=== PATIENT | female | born 1955 | race Caucasian/White ===

== ENCOUNTER 2017-04-12 23:08 | Emergency (ER) | payer BC ==
[2017-04-13] MEDS ORDERED: Lidocaine 2% EPI 1:200000 MPF* 20 ML VIAL ONE (01:26)
[2017-04-13] MEDS ORDERED: Lidocaine 2% EPI 1:200000 MPF* 10 ML VIAL INJ ONE (01:26)
[2017-04-13] MEDS ORDERED: Tetan/Diph/Pertus SYR(Tdap)* 0.5 ML SYR(BOOSTRIX) use SYR IM ONE (01:39)
[2017-04-13 01:58] VITALS: BP 106/54
--- NOTE | 2017-04-13 03:08 | ED ---
Tamar Wheeler Gabriel, scribed for Bin Stout on 04/13/17 at 0128 . Adult Trauma - HPI Summary HPI Summary: This patient is a 62 year old F presenting to [facility] accompanied by her s /p fall. The patient rates the pain 2/10 in severity. Patient reports LOC. Patient denies n/v and visual changes. Patient has some alcoholic drinks and tripped causing her to fall, hitting her head on concrete. - History of Current Complaint Chief Complaint: EDHeadInjury Stated Complaint: HEAD LAC Time Seen by Provider: 04/13/17 01:18 Hx Obtained From: Patient Mechanism of Injury: Fall Ambulatory at the Scene: Yes Loss of Consciousness: brief (seconds) Onset/Duration: Still Present Onset of Pain: Immediate Pain Intensity: 2 Pain Scale Used: 0-10 Numeric Location: Head Associated Signs & Symptoms: Negative: Nausea/Vomiting - Allergy/Home Medications Allergies/Adverse Reactions: Allergies Allergy/AdvReac Type Severity Reaction Status Date / Time No Known Allergies Allergy Verified 04/12/17 23:19 PMH/Surg Hx/FS Hx/Imm Hx Endocrine/Hematology History: Denies: Hx Diabetes Cardiovascular History: Denies: Hx Deep Vein Thrombosis, Hx Myocardial Infarction, Hx Pacemaker/ICD Respiratory History: Denies: Hx Chronic Obstructive Pulmonary Disease (COPD) Neurological History: Denies: Hx CVA Psychiatric History: Denies: Hx Anxiety Infectious Disease History: No Infectious Disease History: Denies: Traveled Outside the [place] in Last 30 Days - Family History Known Family History: Positive: Cardiac Disease, Hypertension, Diabetes, Other - cancer - Social History Lives: With Family Alcohol Use: Occasionally Hx Substance Use: No Substance Use Type: Reports: None Review of Systems Negative: Fever Positive: Other - laceration on scalp Neurological: Other - loc All Other Systems Reviewed And Are Negative: Yes Physical Exam - Summary Physical Exam Summary: Appearance: Well appearing, no pain distress Skin: warm, dry, reflects adequate perfusion Head/face: 2 cm laceration in the right parietal occipital area Eyes: EOMI, GEORGE ENT: normal Neck: supple, non-tender Respiratory: CTA, breath sounds present Cardiovascular: RRR, pulses symmetrical Abdomen: non-tender, soft Bowel: present Musculoskeletal: normal, strength/ROM intact Neuro: normal, sensory motor intact, A&Ox3 Triage Information Reviewed: Yes Vital Signs On Initial Exam: Initial Vitals Temp Pulse Resp BP Pulse Ox 97.4 F 62 14 132/69 97 04/12/17 23:19 04/12/17 23:19 04/12/17 23:19 04/12/17 23:19 04/12/17 23:19 Vital Signs Reviewed: Yes Procedures - Laceration/Wound Repair 1 Location: head Description: Linear Anesthesia: 2.0%, Lido Length, Depth and Shape: 2.5 cm Betadine Prep?: No Irrigated w/ Saline (ccs): 50 - Laceration/Wound Explored: clean, no foreign body removed Closure: Alex #__ - 7 Layer Closure?: No Sterile Dressing Applied?: No Diagnostics - Vital Signs Vital Signs Temp Pulse Resp BP Pulse Ox 04/12/17 23:19 97.4 F 62 14 132/69 97 - Laboratory Lab Statement: Any lab studies that have been ordered have been reviewed, and results considered in the medical decision making process. - CT CT C-spine CT Interpretation Completed By: Radiologist - No fracture ED physician has reviewed this radiology report. CT head CT Interpretation Completed By: Radiologist - normal exam ED physician has reviewed this radiology report. Adult Trauma Course/Dx - Course Assessment/Plan: This patient is a 62 year [facility] F [facility]. The patient rates the pain 2/10 in severity. Patient reports LOC. Patient denies n/v and visual changes. Patient has some alcoholic drinks and tripped causing her to fall, hitting her head on concrete. CT C-spine reveals, per radiologist, No fracture. CT head reveals, per radiologist, normal exam. Laceration was repaired. Patient will be discharged with follow up with her PCP for wound check and staple removal. The patient is agreeable with this plan. - Diagnoses Differential Diagnosis/HQI/PQRI: Positive: Abrasion(s), Contusion(s), Fracture, Hematoma(s), Laceration(s) Provider Diagnoses: Laceration of scalp, Head injury Discharge - Discharge Plan Condition: Stable Disposition: HOME Patient Education Materials: Laceration (ED) Referrals: Non Staff,Doctor [Primary Care Provider] - Additional Instructions: Follow up with your primary care physician Dr. Roche in 3 days for a wound check and in 7 days to have the alex removed. Return to the emergency room for any new or worsening symptoms. The documentation as recorded by the Tamar abebe Gabriel accurately reflects the service I personally performed and the decisions made by , Bin Stout.
--- NOTE | 2017-04-13 10:40 | RAD ---
indication: Trauma to the occiput COMPARISON: None A CT scan of the brain and c-spine was performed without intravenous contrast enhancement. Contiguous axial sections were obtained from the lung apices through the vertex. BRAIN: The ventricles, cisterns and sulci are within normal limits. No significant focal abnormality or mass effect is seen. The townsend-white differentiation is adequately maintained. There is no evidence for intracranial hemorrhage. No significant bony abnormality is present. The mastoid air cells are appropriately aerated. The visualized paranasal sinuses are clear. C-SPINE: There is a mild degree of straightening of the normal cervical lordosis. Degenerative changes include loss of intervertebral disc height most severely affecting C5/C6 where there is marginal osteophyte formation and endplate sclerosis. The dens is intact. The atlantodental interval is not widened. There is no acute fracture or dislocation. There is no hyperdense material in the cervical canal to indicate hemorrhage. The visualized musculature and soft tissues are normal. There is no gross lymphadenopathy visualized. The visualized portion of the lung apices are clear. IMPRESSION: 1. No calvarial fracture or acute intracranial hemorrhage. 2. Degenerative changes of the cervical spine without acute fracture or dislocation.
== END 2017-04-13 01:58 | disposition home or self-care (01) ==
LOC: ED 23:08
DX: S01.01XA Laceration without foreign body of scalp, initial encounter (principal); W19.XXXA Unspecified fall, initial encounter; Y92.9 Unspecified place or not applicable
CPT/HCPCS: 70450; 72125; 90471; 90715; 99282